=== PATIENT | female | born 1975 | race Caucasian/White ===

== ENCOUNTER 2018-06-28 15:49 | Emergency (ER) | payer MEDICAID ==
[~2018-06-28] VITALS: Ht 162.6 cm; Wt 68.9 kg
[2018-06-28 15:55] VITALS: BP 129/77
[2018-06-28] MEDS ORDERED: ONDANSETRON 4 MG ODT PO ONE (18:00)
[2018-06-28] MEDS ORDERED: MECLIZINE 25 MG TAB PO ONE (18:00)
[2018-06-28 19:17] VITALS: BP 125/75
== END 2018-06-28 19:18 | disposition home or self-care (01) ==
LOC: MED 15:49
DX: R42 Dizziness and giddiness (principal); R11.2 Nausea with vomiting, unspecified; R51 Headache; F17.200 Nicotine dependence, unspecified, uncomplicated; Z90.710 Acquired absence of both cervix and uterus
CPT/HCPCS: 81002; 81025; 93005; 99283; J8597; Q0162

== ENCOUNTER 2019-02-12 08:16 | Emergency (ER) | payer MEDICAID, OTHER ==
[~2019-02-12] VITALS: Ht 157.5 cm; Wt 88.2 kg
[2019-02-12 08:20] VITALS: BP 124/56
--- NOTE | 2019-02-12 08:29 | NUR ---
Patient ambulated to bed 9. RN evaluating patient at bedside.
--- NOTE | 2019-02-12 08:39 | NUR ---
c/o right inguinal stabbing pain radiating rle when bladder is full or is micturating, although denies dysuria----no discoloration no injury to area adds strong palpitation sensation unprovoked non radiating self relieving >1 months also denies injury
[2019-02-12] MEDS ORDERED: KETOROLAC 15 MG/ML VIAL IVP ONE (09:00)
--- NOTE | 2019-02-12 09:13 | NUR ---
EKG completed at bedside by EMT.
--- NOTE | 2019-02-12 09:13 | NUR ---
labs drawn at iv start and handed to lab---ekg being completed and ultrasound at bedside
--- NOTE | 2019-02-12 09:15 | NUR ---
US tech at bedside for exam.
[2019-02-12 09:20] LABS: BASOPHILS % (AUTO) 0.4 % (0.0-2.0); EOSINOPHILS # (AUTO) 0.2 K/uL (0-0.4); EOSINOPHILS % (AUTO) 2.2 % (0.0-4.0); HEMOGLOBIN 9.8 g/dL (12.0-16.0); LYMPHOCYTES # (AUTO) 2.3 K/uL (2.5-16.5); LYMPHOCYTES % (AUTO) 23.8 % (20.5-51.1); MEAN CORPUSCULAR HEMOGLOBIN 18 pg (27-31); MEAN CORPUSCULAR HGB CONC 31 g/dL (33-37); MEAN CORPUSCULAR VOLUME 59.3 fL (80-94); MONOCYTES # (AUTO) 0.7 K/uL (0.8-1.0); MONOCYTES % (AUTO) 6.8 % (1.7-9.3); NEUTROPHILS # (AUTO) 6.6 K/uL (1.8-7.7); NEUTROPHILS % (AUTO) 66.8 % (42.2-75.2); PLATELET COUNT (AUTO) 357 K/uL (140-450); RED BLOOD CELL COUNT(AUTO) 5.39 MIL/uL (4.20-5.40); RED CELL DISTRIBUTION WIDTH 19.3 % (11.6-13.7); WHITE BLOOD COUNT (AUTO) 9.8 K/uL (4.8-10.8)
[2019-02-12 09:27] LABS: APPEARANCE,URINE CLEAR (CLEAR); BILIRUBIN,URINE NEGATIVE (NEGATIVE); BLOOD, URINE NEGATIVE (NEGATIVE); COLOR,URINE YELLOW (YELLOW); LEUKOCYTE ESTERASE ,URINE 1+ (NEGATIVE); NITRITE, URINE NEGATIVE (NEGATIVE); UGLUCOSE NEGATIVE (NEGATIVE)
[2019-02-12 09:31] LABS: ANION GAP 11.9 (8-16); CARBON DIOXIDE 26.8 mmol/L (21-32); CREATININE 0.6 mg/dL (0.6-1.3); POTASSIUM 3.7 mmol/L (3.5-5.1)
[2019-02-12 09:37] LABS: ALBUMIN 3.7 g/dL (3.4-5.0); TOTAL BILIRUBIN 0.2 mg/dL (0.0-1.0)
--- NOTE | 2019-02-12 09:53 | NUR ---
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
[2019-02-12 09:57] LABS: RBC,URINE 0-5 /HPF (0-5)
[2019-02-12] MEDS ORDERED: MORPHINE SULFATE 2 MG/ML SYR IVP ONE ×2 (10:45→11:30)
[2019-02-12] MEDS ORDERED: ONDANSETRON 4 MG/2 ML VIAL IVP ONE (10:45)
--- NOTE | 2019-02-12 12:00 | NUR ---
PT RESTING IN BED, REPORTS PAIN MEDICATION IS EFFECTIVE WITH PAIN RELIEF AND SHE IS COMFORTABLE AT THIS TIME.
--- NOTE | 2019-02-12 12:05 | NUR ---
Dr. Hernandez re-evaluating patient at bedside.
[2019-02-12 12:25] VITALS: BP 106/62
== END 2019-02-12 12:24 | disposition home or self-care (01) ==
LOC: MED 08:16
DX: N83.201 Unspecified ovarian cyst, right side (principal); E07.9 Disorder of thyroid, unspecified; Z90.49 Acquired absence of other specified parts of digestive tract; Z90.710 Acquired absence of both cervix and uterus; Z98.890 Other specified postprocedural states
CPT/HCPCS: 36415; 71045; 76705; 76856; 80053; 81001; 81025; 83605; 84484; 85025; 87040; 87086; 93005; 96374; 96375; 99284; J1885; J2270; J2405; Q0092; 96376

== ENCOUNTER 2019-03-06 10:25 | Outpatient (CLI) | payer MEDICAID | END 2019-03-06 20:17 | disposition home or self-care (01) | LOC: MUS 10:25 | PROVIDERS: ATTEND Obstetrics & Gynecology | DX: K76.0 Fatty (change of) liver, not elsewhere classified (principal); N28.1 Cyst of kidney, acquired; K42.9 Umbilical hernia without obstruction or gangrene ==

== ENCOUNTER 2020-02-06 10:22 | Emergency (ER) | payer MEDICAID, OTHER ==
[~2020-02-06] VITALS: Ht 157.5 cm; Wt 86.2 kg
[2020-02-06 10:26] VITALS: BP 159/90
--- NOTE | 2020-02-06 10:29 | NUR ---
pt ambulated to er bed 04
--- NOTE | 2020-02-06 10:30 | NUR ---
PT C/O LEFT EAR PAIN AND LEFT-SIDED THROAT PAIN FOR 2 DAYS. ERYTHEMA W/O DRAINAGE IN LEFT EAR NOTICED, TM IS NOT VISIBLE IN LEFT EAR. +2 SWELLING W/ YELLOWISH EXCUDATES NOTICED ON LEFT-SIDED TONSIL. LEFT ANTERIOR CERVICAL LYMPH NODES ENLARGED ON PALPATION. PT DENIES FEVER, COUGH, CP, SOB, N/V/D OR SICK CONTACTS. AAOX4 WITH EVEN AND STEADY GAIT; LUNGS CLEAR BL; HR EVEN AND REGULAR; PATIENT STATES PAIN OF 9/10 AT THIS TIME; VSS; PATIENT POSITIONED FOR COMFORT; HOB ELEVATED; BEDRAILS UP X1; BED DOWN. ER MD MADE AWARE OF PT STATUS.
--- NOTE | 2020-02-06 10:35 | NUR ---
DR. RUSSELL IS EVALUATING PT AT BEDSIDE.
[2020-02-06] MEDS ORDERED: DEXAMETHASONE 10 MG/ML VIAL IM ONE (10:40)
[2020-02-06] MEDS ORDERED: IBUPROFEN 400 MG TAB PO ONE (10:40)
--- NOTE | 2020-02-06 10:49 | NUR ---
STREP SWABS OBTAINED AND SENT TO THE LAB.
[2020-02-06 11:22] VITALS: BP 141/85
--- NOTE | 2020-02-06 11:22 | NUR ---
Patient discharged with v/s stable. Written and verbal after care instructions given and explained. Patient alert, oriented and verbalized understanding of instructions. Ambulatory with steady gait. All questions addressed prior to discharge. ID band removed. Patient advised to follow up with PMD. Rx of Penicillin and Naprosyn given. Patient educated on indication of medication including possible reaction and side effects. Opportunity to ask questions provided and answered.
== END 2020-02-06 11:22 | disposition home or self-care (01) ==
LOC: MED 10:22
DX: J03.90 Acute tonsillitis, unspecified (principal); F17.210 Nicotine dependence, cigarettes, uncomplicated; E07.9 Disorder of thyroid, unspecified; Z90.49 Acquired absence of other specified parts of digestive tract; Z90.710 Acquired absence of both cervix and uterus; Z98.890 Other specified postprocedural states
CPT/HCPCS: 87081; 96372; 99283; J1100

== ENCOUNTER 2020-03-06 16:10 | Emergency (ER) | payer OTHER ==
[~2020-03-06] VITALS: Ht 162.6 cm; Wt 88.9 kg
[2020-03-06 16:14] VITALS: BP 161/86
[2020-03-06] MEDS ORDERED: IBUPROFEN 600 MG TAB ONE (16:40)
[2020-03-06] MEDS: IBUPROFEN 600 MG TAB PO SCH (16:42)
--- NOTE | 2020-03-06 16:46 | NUR ---
X-Ray at bedside.
--- NOTE | 2020-03-06 16:57 | NUR ---
44 Y/O FEMALE C/O LEFT ANKLE PAIN S/P WORK INJURY. PT IS UNSURE WHAT HAPPENED, SHHE BELIEVES SHE MAY HAVE ROLLED HER ANKLE WHILE LIFTING HEAVY BOXES. NO OBVIOUS DEFORMITY NOTED. NO SWELLING NOTED. CMS+, ROM+, PEDAL PULSES PRESENT. NKA
[2020-03-06 17:41] VITALS: BP 161/86
== END 2020-03-06 17:41 | disposition home or self-care (01) ==
LOC: MED 16:10
DX: S93.402A Sprain of unspecified ligament of left ankle, initial encounter (principal); X58.XXXA Exposure to other specified factors, initial encounter; Y93.89 Activity, other specified; Y92.89 Other specified places as the place of occurrence of the external cause; Y99.8 Other external cause status
CPT/HCPCS: 73610; 99283

== ENCOUNTER 2020-03-10 22:11 | Emergency (ER) | payer OTHER ==
[~2020-03-10] VITALS: Ht 157.5 cm; Wt 89.8 kg
[2020-03-10 22:17] VITALS: BP 146/93
--- NOTE | 2020-03-10 22:23 | NUR ---
PT AMBULATED TO BED #12
[2020-03-10] MEDS ORDERED: ACETAMINOPHEN 325 MG TAB PO ONE (22:50)
--- NOTE | 2020-03-10 23:00 | NUR ---
44 Y/O F PRESENTS TO ED C/O LEFT FOOT PAIN X 1 WEEK AGO. PT STATES THAT SHE MIGHT HAVE HIT HER LEFT FOOT WITH SOMETHING OR MIGHT HAVE TWISTED IT AT WORK. LEFT FOOT APPEARS TO BE SWOLLEN AND BRUISED. PT UNABLE TO FLEX LEFT FOOT WITHOUT HAVING PAIN. PER PT, SHE IS TAKING IBUPROFEN AND PUTTING ICE PACKS TO THE AFFECTED AREA BUT WITH NO RELIEF. BED IN LOWEST POSITION, SIDE RAIL UP X1. WILL CONTINUE TO MONITOR. MHX: HYPOTHYROIDISM NKA
[2020-03-10 23:41] VITALS: BP 146/93
--- NOTE | 2020-03-10 23:42 | NUR ---
Patient discharged with v/s stable. Written and verbal after care instructions given and explained. Patient alert, oriented and verbalized understanding of instructions. Wheel Chair Assisted with to car. All questions addressed prior to discharge. ID band removed. Patient advised to follow up with PMD. Rx of IBUPROFEN given. Patient educated on indication of medication including possible reaction and side effects. Opportunity to ask questions provided and answered.
== END 2020-03-10 23:40 | disposition home or self-care (01) ==
LOC: MED 22:11
DX: S93.402A Sprain of unspecified ligament of left ankle, initial encounter (principal); W22.8XXA Striking against or struck by other objects, initial encounter; Y93.89 Activity, other specified; Y92.89 Other specified places as the place of occurrence of the external cause; Y99.0 Civilian activity done for income or pay
CPT/HCPCS: 73610; 81002; 81025; 99283; Q0092

== ENCOUNTER 2020-06-24 11:00 | Day surgery (SDC) | payer OTHER, SELFPAY ==
[~2020-06-24] VITALS: Ht 157.5 cm; Wt 81.6 kg
[2020-06-24] MEDS ORDERED: PROPOFOL 200 MG/20 ML VIAL IV ONE (12:22)
[2020-06-24] MEDS ORDERED: DESFLURANE 240 ML BTL INH ONE (12:22)
[2020-06-24] MEDS ORDERED: DEXAMETHASONE 4 MG/ML VIAL ONE (12:22)
[2020-06-24] MEDS ORDERED: KETOROLAC 30 MG/ML VIAL ONE (12:22)
[2020-06-24] MEDS ORDERED: ONDANSETRON 4 MG/2 ML VIAL ONE (12:22)
[2020-06-24] MEDS ORDERED: fentaNYL citrate 0.05 MG/ML VIAL ONE (12:22)
[2020-06-24] MEDS ORDERED: LIDOCAINE 2% 100 MG/5 ML UJET TP ONE (12:53)
[2020-06-24] MEDS ORDERED: KETOROLAC 30 MG/ML VIAL IVP SCH (13:05)
[2020-06-24] MEDS ORDERED: BLOOD GLUCOSE MONITORING 1 DEV DEV FS ONE (13:10)
[2020-06-24] MEDS ORDERED: ONDANSETRON 4 MG/2 ML VIAL IVP PRN (13:10)
[2020-06-24] MEDS ORDERED: HYDROmorphone PFS 2 MG/ML SYR ONE (13:15)
[2020-06-24] MEDS: HYDROmorphone 1 MG/ML AMP IVP PRN ×4 (13:21→13:52)
[2020-06-24] MEDS ORDERED: SILVER SULFADIAZINE 1% 50 GM JAR TP SCH (14:50)
== END 2020-06-24 15:05 | disposition home or self-care (01) ==
LOC: MDS 11:00 → MMU 11:00 → MDS 15:05
PROVIDERS: ATTEND Obstetrics & Gynecology
DX: A63.0 Anogenital (venereal) warts (principal); B07.9 Viral wart, unspecified; E11.9 Type 2 diabetes mellitus without complications; E03.9 Hypothyroidism, unspecified; Z90.710 Acquired absence of both cervix and uterus; Z90.49 Acquired absence of other specified parts of digestive tract; Z98.51 Tubal ligation status; Z20.828 Contact with and (suspected) exposure to other viral communicable diseases; Z79.899 Other long term (current) drug therapy
CPT/HCPCS: 36415; 56515; 86886; 86900; 86901; J1100; J1170; J1885; J2405; J2704; J3010; J7030; U0003

== ENCOUNTER 2020-11-14 11:42 | Day surgery (SDC) | payer OTHER, SELFPAY ==
[~2020-11-14] VITALS: Ht 157.5 cm; Wt 85.3 kg
--- NOTE | 2020-11-14 12:48 | NUR ---
PER NURSE EKG IS CANCELLED PER PHYSICIAN ORDER.
[2020-11-14] MEDS ORDERED: ONDANSETRON 4 MG/2 ML VIAL ONE (12:58)
[2020-11-14] MEDS ORDERED: PROPOFOL 200 MG/20 ML VIAL IV ONE (12:58)
[2020-11-14] MEDS ORDERED: DESFLURANE 240 ML BTL INH ONE (12:58)
[2020-11-14] MEDS ORDERED: KETOROLAC 30 MG/ML VIAL ONE ×2 (12:58→15:37)
[2020-11-14] MEDS ORDERED: DEXAMETHASONE 4 MG/ML VIAL ONE (12:58)
[2020-11-14] MEDS ORDERED: LIDOCAINE/EPI MPF 1%1:200000 30 ML VIAL INJ ONE (13:17)
[2020-11-14] MEDS ORDERED: ONDANSETRON 4 MG/2 ML VIAL IVP PRN (13:40)
[2020-11-14] MEDS ORDERED: LIDOCAINE OINTMENT 5% 35 GM TUBE TP ONE ×2 (13:52→16:32)
[2020-11-14] MEDS ORDERED: SILVER SULFADIAZINE 1% 50 GM JAR TP SCH (14:10)
[2020-11-14] MEDS ORDERED: HYDROmorphone PFS 2 MG/ML SYR ONE (14:20)
[2020-11-14] MEDS: HYDROmorphone 1 MG/ML AMP IVP PRN ×3 (14:24→14:45)
[2020-11-14] MEDS ORDERED: KETOROLAC 30 MG/ML VIAL IVP ONE (15:30)
== END 2020-11-14 16:40 | disposition home or self-care (01) ==
LOC: MDS 11:42 → MMU 11:43 → MDS 16:40
PROVIDERS: ATTEND Obstetrics & Gynecology
DX: A63.0 Anogenital (venereal) warts (principal); N39.3 Stress incontinence (female) (male)
CPT/HCPCS: 36415; 56515; 57288; 86886; 86900; 86901; 87426; C1771; J1100; J1170; J1885; J2001; J2405; J2704; J7120

== ENCOUNTER 2021-04-09 11:02 | Day surgery (SDC) | payer OTHER ==
[~2021-04-09] VITALS: Ht 157.5 cm; Wt 86.2 kg
[2021-04-09] MEDS ORDERED: SUCCINYLCHOLINE CHLORIDE 200 MG/10 ML VIAL IVP ONE (12:13)
[2021-04-09] MEDS ORDERED: METOCLOPRAMIDE 10 MG/2 ML INJ VIAL ONE (12:13)
[2021-04-09] MEDS ORDERED: LIDOCAINE MPF 2% 100 MG/5 ML VIAL INJ ONE (12:13)
[2021-04-09] MEDS ORDERED: fentaNYL citrate 0.05 MG/ML VIAL ONE (12:13)
[2021-04-09] MEDS ORDERED: ONDANSETRON 4 MG/2 ML VIAL ONE (12:13)
[2021-04-09] MEDS ORDERED: GLYCOPYRROLATE 0.2 MG/ML VIAL ONE (12:13)
[2021-04-09] MEDS ORDERED: PROPOFOL 200 MG/20 ML VIAL IV ONE (12:13)
[2021-04-09] MEDS ORDERED: ROCURONIUM 50 MG/5 ML VIAL IV ONE (12:13)
[2021-04-09] MEDS ORDERED: KETOROLAC 30 MG/ML VIAL ONE (12:14)
[2021-04-09] MEDS ORDERED: NEOSTIGMINE 1:1000 10 MG/10 ML VIAL ONE (12:14)
[2021-04-09] MEDS ORDERED: oxyCODONE/APAP 5/325 MG 1 TAB TAB PO PRN (12:30)
[2021-04-09] MEDS ORDERED: diphenhydrAMINE 50 MG/ML VIAL IVP PRN (12:30)
[2021-04-09] MEDS ORDERED: MEPERIDINE 25 MG/ML SYR IVP PRN (12:30)
[2021-04-09] MEDS ORDERED: BUPIVACAINE-MPF/EPI 0.25% 10 ML VIAL INJ ONE (12:30)
[2021-04-09] MEDS ORDERED: LACTATED RINGERS 1,000 ML IV SCH (12:30)
[2021-04-09] MEDS ORDERED: ONDANSETRON 4 MG/2 ML VIAL IVP PRN (12:30)
[2021-04-09] MEDS ORDERED: LIDOCAINE 1% 500 MG/50 ML VIAL ONE (12:31)
[2021-04-09] MEDS ORDERED: SEVOFLURANE 250 ML BTL INH ONE (14:01)
[2021-04-09] MEDS: fentaNYL citrate 0.05 MG/ML VIAL IVP PRN ×3 (14:58→15:18)
== END 2021-04-09 16:47 | disposition home or self-care (01) ==
LOC: MDS 11:02 → MMU 11:02 → MDS 16:47
PROVIDERS: ATTEND Surgery
DX: K64.4 Residual hemorrhoidal skin tags (principal); K64.8 Other hemorrhoids; K42.9 Umbilical hernia without obstruction or gangrene; E03.9 Hypothyroidism, unspecified; Z90.49 Acquired absence of other specified parts of digestive tract; Z98.51 Tubal ligation status; Z79.899 Other long term (current) drug therapy
CPT/HCPCS: 46260; 71045; J0330; J1885; J2001; J2405; J2704; J2710; J2765; J3010; J3490; 88302

== ENCOUNTER 2021-10-27 19:31 | Emergency (ER) | payer OTHER ==
[~2021-10-27] VITALS: Ht 157.5 cm; Wt 87.1 kg
[2021-10-27 19:52] VITALS: BP 142/86
[2021-10-27] MEDS ORDERED: BLOOD GLUCOSE MONITORING 1 DEV DEV FS ONE (20:50)
--- NOTE | 2021-10-27 21:41 | NUR ---
46 YO/F BIB SELF W C/O PAINFUL URINATION AND STRONG SMELLING URINE, + L FLANK PAIN AND LUQ PAIN 8/10 SHARP NON-RAD X1 WEEK. PT REPORTS TAKING OTC AZO AND A VAGINAL SUPPOSITORY MEDICATION INCASE SHE HAD A UTI OR VAGINAL INFECTION, NO RELIEF W MEDICATION. PT DENIES ANY VAGINAL PAIN, ABNORMAL DISCHARGE OR OTHER VAGINAL SYMPTOMS. PT REPORTS POSSIBLE SKANT BLOOD IN URINE BUT NOT SURE. PT DENIES ANY FEVERS, CHILLS, N/V/D. DENIES TAKING PAIN MEDICATION. PT SITTING IN CHAIR B. VSS. BREATHING EVEN AND UNLABORED. PMH: DIABETES, THYROID DZ, UTERUS AND GALL BLADDER REMOVAL ALLERGIES: DENIES.0
--- NOTE | 2021-10-27 21:53 | NUR ---
PT TO CT VIA WHEEL CHAIR.
[2021-10-27] MEDS ORDERED: KETOROLAC 15 MG/ML VIAL IM ONE (21:55)
[2021-10-27] MEDS ORDERED: CEPH-588 PO (22:26)
--- NOTE | 2021-10-27 22:37 | NUR ---
PT REPORTS FEELING BETTER. PAIN IMPROVEMENT.
[2021-10-27 22:46] VITALS: BP 125/81
== END 2021-10-27 22:46 | disposition home or self-care (01) ==
LOC: MED 19:31
DX: N12 Tubulo-interstitial nephritis, not specified as acute or chronic (principal); E11.9 Type 2 diabetes mellitus without complications; Z79.899 Other long term (current) drug therapy
CPT/HCPCS: 74176; 81002; 81025; 96372; 99284; J1885

== ENCOUNTER 2022-01-06 16:43 | Emergency (ER) | payer OTHER ==
[~2022-01-06] VITALS: Ht 157.5 cm; Wt 90.7 kg
[~2022-01-06 16:43] MED LIST: CEPH-588 PO
[2022-01-06 16:46] VITALS: BP 137/80
--- NOTE | 2022-01-06 17:29 | NUR ---
PER SCHUYLER IN ADMITTING, PT LEFT WITHOUT BEING SEEN AT THIS TIME.
--- NOTE | 2022-01-06 17:30 | NUR ---
PATIENT LEFT WITHOUT BEING SEEN BY DR. GANDARA. NO FURTHER CARE PROVIDED FOR PATIENT.
== END 2022-01-06 17:30 | disposition left against medical advice (07) ==
LOC: MED 16:43
DX: M25.562 Pain in left knee (principal); M25.561 Pain in right knee; M25.511 Pain in right shoulder; Z53.21 Procedure and treatment not carried out due to patient leaving prior to being seen by health care provider

== ENCOUNTER 2022-10-07 07:03 | Day surgery (SDC) | payer OTHER ==
[~2022-10-07] VITALS: Ht 157.5 cm; Wt 80.7 kg
[2022-10-07] MEDS ORDERED: PROPOFOL 200 MG/20 ML VIAL IV ONE ×2 (09:00→09:33)
[2022-10-07] MEDS ORDERED: acetaZOLAMIDE sodium 500 MG VIAL ONE (09:00)
[2022-10-07] MEDS ORDERED: ONDANSETRON 4 MG/2 ML VIAL ONE ×2 (09:00→09:34)
[2022-10-07] MEDS ORDERED: fentaNYL citrate 0.05 MG/ML - 50mL vial IV ONE (09:00)
[2022-10-07] MEDS ORDERED: ROCURONIUM 50 MG/5 ML VIAL IV ONE ×2 (09:00→09:34)
[2022-10-07] MEDS ORDERED: SUGAMMADEX SODIUM 200 MG/2 ML VIAL IV ONE ×3 (09:00→09:59)
[2022-10-07] MEDS ORDERED: LIDOCAINE MPF 1% 20 ML ONE (09:03)
[2022-10-07] MEDS ORDERED: BUPIVACAINE-MPF/EPI 0.25% 30 ML VIAL INJ ONE (09:03)
[2022-10-07] MEDS ORDERED: LIDOCAINE 2% 100 MG/5 ML UJET TP ONE (09:03)
[2022-10-07] MEDS ORDERED: ACETAMINOPHEN 100 ML IV ONE (09:12)
[2022-10-07] MEDS ORDERED: ONDANSETRON 4 MG/2 ML VIAL IVP PRN (09:15)
[2022-10-07] MEDS ORDERED: fentaNYL citrate 0.05 MG/ML VIAL ONE (09:32)
[2022-10-07] MEDS ORDERED: SUCCINYLCHOLINE CHLORIDE 200 MG/10 ML VIAL IVP ONE (09:33)
[2022-10-07] MEDS ORDERED: DEXAMETHASONE 4 MG/ML VIAL ONE (09:34)
[2022-10-07] MEDS ORDERED: HYDROmorphone PFS 2 MG/ML SYR ONE (10:07)
[2022-10-07] MEDS: HYDROmorphone 1 MG/ML AMP IVP PRN ×5 (10:10→11:15)
== END 2022-10-07 14:03 | disposition home or self-care (01) ==
LOC: MDS 07:03 → MMU 07:04 → MDS 14:03
PROVIDERS: ATTEND Surgery
DX: K64.1 Second degree hemorrhoids (principal); K64.8 Other hemorrhoids; K42.9 Umbilical hernia without obstruction or gangrene; E03.9 Hypothyroidism, unspecified; Z87.891 Personal history of nicotine dependence; Z90.49 Acquired absence of other specified parts of digestive tract; Z20.822 Contact with and (suspected) exposure to COVID-19; Z79.899 Other long term (current) drug therapy; Z90.710 Acquired absence of both cervix and uterus
CPT/HCPCS: 46260; 71045; 87426; 88304; 93005; J0330; J1100; J1120; J1170; J2001; J2405; J2704; J3010; J3490; J7030

== ENCOUNTER 2023-02-14 14:47 | Emergency (ER) | payer OTHER ==
[~2023-02-14] VITALS: Ht 165.1 cm; Wt 90.7 kg
[2023-02-14 15:19] VITALS: BP 132/72; PULSE 75; RESP 18; TEMP 98.1; O2SAT 98
[2023-02-14 16:06] LABS: BASOPHILS # (AUTO) 0.1 K/uL (0.00-0.22); BASOPHILS % (AUTO) 0.7 % (0.0-2.0); EOSINOPHILS # (AUTO) 0.2 K/uL (0-0.4); EOSINOPHILS % (AUTO) 1.8 % (0.0-4.0); HEMATOCRIT 30.4 % (36-48); HEMOGLOBIN 9.4 g/dL (12.0-16.0); LYMPHOCYTES # (AUTO) 2.4 K/uL (2.5-16.5); LYMPHOCYTES % (AUTO) 24.7 % (20.5-51.1); MEAN CORPUSCULAR HEMOGLOBIN 18 pg (27-31); MEAN CORPUSCULAR HGB CONC 31 g/dL (33-37); MEAN CORPUSCULAR VOLUME 58.9 fL (80-94); MONOCYTES # (AUTO) 0.6 K/uL (0.8-1.0); MONOCYTES % (AUTO) 5.8 % (1.7-9.3); NEUTROPHILS # (AUTO) 6.6 K/uL (1.8-7.7); PLATELET COUNT (AUTO) 339 K/uL (140-450); RED BLOOD CELL COUNT(AUTO) 5.16 MIL/uL (4.20-5.40); RED CELL DISTRIBUTION WIDTH 18.8 % (11.6-13.7); WHITE BLOOD COUNT (AUTO) 9.9 K/uL (4.8-10.8)
[2023-02-14] MEDS ORDERED: METOCLOPRAMIDE 10 MG/2 ML INJ VIAL IVP ONE (16:10)
[2023-02-14] MEDS ORDERED: NACL 0.9% 1,000 ML IV ONE (16:10)
[2023-02-14] MEDS ORDERED: MECLIZINE 25 MG TAB PO ONE (16:10)
[2023-02-14 16:26] LABS: ALBUMIN 3.6 g/dL (3.4-5.0); ANION GAP 10.6 (8-16); CARBON DIOXIDE 27.5 mmol/L (21-32); CREATININE 0.5 mg/dL (0.6-1.3); POTASSIUM 4.1 mmol/L (3.5-5.1); TOTAL BILIRUBIN 0.4 mg/dL (0.0-1.0)
--- NOTE | 2023-02-14 16:26 | NUR ---
pt has been medicated per providers orders.
--- NOTE | 2023-02-14 16:30 | NUR ---
PATIENT PRESENTS TO ED WITH SIGNS OF LOWER LEFT ABD PAIN THAT RADIATES TO THE BACK FLANK ON LEFT SIDE. PT STATES SHE HAS HAD THIS PAIN FOR 2 DAYS.PT STATES SHE HAS SYMPTOMS OF N/V DENIES DIARREHA; SKIN IS PINK/WARM/DRY; AAOX4 WITH EVEN AND STEADY GAIT; LUNGS CLEAR BL; HR EVEN AND REGULAR; PT DENIES ANY FEVER, CP, SOB, OR COUGH AT THIS TIME; PATIENT STATES PAIN OF 8/10 AT THIS TIME; VSS; PATIENT POSITIONED FOR COMFORT; HOB ELEVATED; BEDRAILS UP X2; BED DOWN. CALL WITH IN REACH. ER MD MADE AWARE OF PT STATUS.
[2023-02-14 16:47] VITALS: O2SAT 98
[2023-02-14] MEDS ORDERED: MORPHINE SULFATE 4 MG/ML SYR IVP ONE (17:50)
--- NOTE | 2023-02-14 18:26 | NUR ---
pt has been medicated per providers orders.
--- NOTE | 2023-02-14 18:46 | NUR ---
The patient's care was reviewed and supervised by CHAUNCEY NORIEGA RN.
[2023-02-14 19:19] VITALS: TEMP 97.6
--- NOTE | 2023-02-14 19:48 | NUR ---
RECEIVED PT FROM CARLOS MOORE. PT LYING IN BED WITH NO S/S OF PAIN OR DISTRESS. PT STATES PAIN LEVEL 8/10. DENIES N/V. VSS. CALL LIGHT WITHIN REACH.
[2023-02-14 19:58] VITALS: BP 118/68; PULSE 81; RESP 15
--- NOTE | 2023-02-14 19:59 | NUR ---
PT IN CT
[2023-02-14 20:03] VITALS: O2SAT 98
[2023-02-14] MEDS ORDERED: AMOX-999 PO (20:38)
[2023-02-14] MEDS ORDERED: ONDA-188 SL (20:38)
[2023-02-14] MEDS ORDERED: MECL-303 PO (20:39)
--- NOTE | 2023-02-14 20:49 | NUR ---
Patient discharged with v/s stable. Written and verbal after care instructions given and explained. Patient verbalized understanding. Ambulatory with steady gait. All questions addressed prior to discharge. Advised to follow up with PMD.
== END 2023-02-14 20:49 | disposition home or self-care (01) ==
LOC: MED 14:47
DX: K52.9 Noninfective gastroenteritis and colitis, unspecified (principal); R42 Dizziness and giddiness; E11.9 Type 2 diabetes mellitus without complications; E07.9 Disorder of thyroid, unspecified; Z90.49 Acquired absence of other specified parts of digestive tract; Z90.710 Acquired absence of both cervix and uterus; Z98.890 Other specified postprocedural states; Z79.899 Other long term (current) drug therapy
CPT/HCPCS: 36415; 74177; 80053; 83690; 84703; 85025; 96361; 96374; 96375; 99285; J2270; J2765; J7030; J8597; Q9967

== ENCOUNTER 2023-09-27 15:41 | Emergency (ER) | payer OTHER ==
[~2023-09-27] VITALS: Ht 157.5 cm; Wt 78.9 kg
[~2023-09-27 15:41] MED LIST changes: +AMOX-999 PO; -CEPH-588 PO; +MECL-303 PO; +ONDA-188 SL
[2023-09-27 15:48] VITALS: BP 133/85; PULSE 77; RESP 16; TEMP 97.9; O2SAT 98
[2023-09-27 17:10] LABS: APPEARANCE,URINE CLEAR (CLEAR); BILIRUBIN,URINE NEGATIVE (NEGATIVE); BLOOD, URINE NEGATIVE (NEGATIVE); COLOR,URINE YELLOW (YELLOW); LEUKOCYTE ESTERASE ,URINE NEGATIVE (NEGATIVE); NITRITE, URINE NEGATIVE (NEGATIVE); PROTEIN,URINE NEGATIVE (NEGATIVE); UGLUCOSE 3+ (NEGATIVE); UROBILINOGEN,URINE 0.2 EU/dL (0.2 - 1)
[2023-09-27 17:10] LABS: HEMATOCRIT 32.1 % (36-48); HEMOGLOBIN 9.6 g/dL (12.0-16.0); MEAN CORPUSCULAR HEMOGLOBIN 17 pg (27-31); MEAN CORPUSCULAR HGB CONC 30 g/dL (33-37); MEAN CORPUSCULAR VOLUME 57.1 fL (80-94); PLATELET COUNT (AUTO) 231 K/uL (140-450); RED BLOOD CELL COUNT(AUTO) 5.62 MIL/uL (4.20-5.40); RED CELL DISTRIBUTION WIDTH 19.1 % (11.6-13.7); WHITE BLOOD COUNT (AUTO) 11.4 K/uL (4.8-10.8)
[2023-09-27 17:20] LABS: ANION GAP 15.6 (8-16); CALCIUM 8.8 mg/dL (8.5-10.1); CARBON DIOXIDE 26.3 mmol/L (21-32); CREATININE 0.6 mg/dL (0.6-1.3); POTASSIUM 3.9 mmol/L (3.5-5.1)
[2023-09-27 17:32] LABS: ALBUMIN 3.5 g/dL (3.4-5.0); BILIRUBIN,DIRECT 0.1 mg/dL (0.0-0.3); TOTAL BILIRUBIN 0.3 mg/dL (0.0-1.0); TOTAL PROTEIN, SERUM 9.1 g/dL (6.4-8.2)
[2023-09-27] MEDS: DICYCLOMINE 10 MG CAP PO ONE (18:40)
[2023-09-27] MEDS: ACETAMINOPHEN 325 MG TAB PO ONE (18:40)
[2023-09-27] MEDS: KETOROLAC 30 MG/ML VIAL IM ONE (18:43)
[2023-09-27 18:46] LABS: EOSINOPHILS % (MANUAL) 5 % (0-4); LYMPHOCYTES % (MANUAL) 18 % (20-46); MONOCYTES % (MANUAL) 6 % (5-12)
[2023-09-27 18:47] LABS: ANISOCYTOSIS 1+; HYPOCHROMASIA 1+; POIKILOCYTOSIS 1+
[2023-09-27 18:48] LABS: POLYCHROMASIA 1+
[2023-09-27 18:49] LABS: TEAR DROP CELLS 1+
[2023-09-27] MEDS ORDERED: IBUP-2213 PO (19:06)
[2023-09-27] MEDS ORDERED: ONDA-188 SL (19:06)
[2023-09-27] MEDS ORDERED: BEN10 PO (19:06)
[2023-09-27 19:26] VITALS: BP 132/80; PULSE 77; RESP 16; TEMP 98; O2SAT 99
== END 2023-09-27 19:26 | disposition home or self-care (01) ==
LOC: MED 15:41
DX: R10.12 Left upper quadrant pain (principal); R10.32 Left lower quadrant pain; R11.2 Nausea with vomiting, unspecified; R19.7 Diarrhea, unspecified; E11.9 Type 2 diabetes mellitus without complications; E03.9 Hypothyroidism, unspecified; Z90.710 Acquired absence of both cervix and uterus; Z79.899 Other long term (current) drug therapy
CPT/HCPCS: 36415; 74176; 80048; 80076; 81003; 81025; 83690; 84484; 84703; 85025; 93005; 96372; 99285; J1885